=== PATIENT | male | born 1975 | race Two or more races ===

== ENCOUNTER 2025-07-18 00:26 | Emergency (ER) | payer OTHER ==
[~2025-07-18] VITALS: Ht 167.6 cm; Wt 81.0 kg
[2025-07-18 00:26] VITALS: PULSE 110; RESP 22; O2SAT 97
[2025-07-18 00:42] VITALS: BP 124/88; PULSE 110; RESP 22; TEMP 98.3; O2SAT 100
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
== END 2025-07-18 00:52 | disposition home or self-care (01) ==
LOC: ER 00:26
DX: S60.312A Abrasion of left thumb, initial encounter (principal); S09.90XA Unspecified injury of head, initial encounter; X58.XXXA Exposure to other specified factors, initial encounter; Y93.89 Activity, other specified; Y92.89 Other specified places as the place of occurrence of the external cause; Y99.8 Other external cause status